=== PATIENT | male | born 1950 | race Caucasian/White ===

== ENCOUNTER 2017-03-24 15:00 | Emergency (ER) | payer OTHER ==
[~2017-03-24] VITALS: Ht 193 cm; Wt 120.0 kg
[~2017-03-24 15:00] MED LIST: AMLO10TA3 PO; CARV12.52 PO; LOSA50TA37 PO
[2017-03-24 15:15] VITALS: BP 178/90; PULSE 59; RESP 20; O2SAT 96
[2017-03-24] MEDS ORDERED: LOSA50TA37 PO (15:29)
[2017-03-24] MEDS ORDERED: ATOR10TA66 PO (15:29)
[2017-03-24] MEDS ORDERED: METF500T4 PO (15:29)
[2017-03-24] MEDS ORDERED: Fluorescein 0.6 mg Ophthalmic Strip ONE (18:16)
[2017-03-24] MEDS ORDERED: 0.9% Sodium Chloride Inhalation Solution ONE (18:16)
[2017-03-24] MEDS ORDERED: Tetracaine 0.5% 4 mL Ophthalmic Solution ONE (18:37)
[2017-03-24] MEDS ORDERED: Tetracaine 0.5% 4 mL Ophthalmic Solution BOTH_EYES ONE (18:40)
--- NOTE | 2017-03-24 18:56 | ED.REPORT ---
HPI-Eye Problem Date of Service Mar 24, 2017 ED Provider: Esequiel Qiu PA-C Raymond is an 66-year-old male with a history of hypertension, congestive heart failure, diabetes type II diagnosed roughly a year ago today with a chief complaint of blurred right vision. Patient states it began approximately 2 PM yesterday she is bending over working on an engine. He states "it was like a dark line came down and my vision. It looked like [place]'s Syrup pouring into milk." Is associated with blurred vision in his right eye. He states symptoms have remained unchanged since onset though the visual defect seems to move when he moves his head. He denies a history of CVA, TIA, hyperlipidemia. He denies trauma, pain, foreign body sensation, headache, any neurological changes. He recently had an ophthalmology evaluation after his diagnosis of diabetes, which he reports was unremarkable. Nursing Notes Stated Complaint: RIGHT EYE BLURRY Chief Complaint: Eye Nursing Notes Reviewed: Yes Allergies: Coded Allergies: No Known Allergies (Unverified Allergy, Unknown, 09/13/14) Scheduled Amlodipine (Amlodipine) 10 Mg Tablet 10 MG PO DAILY Atorvastatin Calcium (Atorvastatin Calcium) 10 Mg Tablet 10 MG PO DAILY Carvedilol (Carvedilol) 12.5 Mg Tablet 12.5 MG PO BID Losartan Potassium (Losartan Potassium) 50 Mg Tablet 50 MG PO BID Metformin (Metformin) 500 Mg Tablet 500 MG PO DAILY General Time Seen by MD: 18:36 Chief Complaint Right eye affected Past Medical History Past Medical History Hep C Reports: Congestive heart failure, Diabetes mellitus Past Surgical History Reports: Tonsillectomy Smoking History Former Smoker Social History Alcohol Use: "Social" Review of Systems Review of Systems Note: Negative unless stated otherwise in history of present illness Physical Exam General: Well appearing, well developed, well nourished, no acute distress. Head: Atraumatic, normocephalic. Eyes: No scleral icterus or injection. No discharge. PERRL, EOMI. Anterior chambers clear. Funduscopic examination reveals reduced red reflex on the right side. Visual acuity exam reveals 20/25 vision left, 20/60 vision right, 20/20 vision with both eyes,. Collin-Pen examination reveals readings of 15, 15 and 16 mmHg ENT: Voice clear, hearing grossly intact. Respiratory: Regular rate and rhythm. Breath sounds present, clear to auscultation and equal bilaterally. No respiratory distress. No increased work of breathing, speaks in complete sentences. Cardiovascular: Regular rate and rhythm, without murmur, gallop or rub. No pedal edema. Skin: Warm and dry. Neurological: Normal finger-nose, normal rapid hand, normal heel-mg, normal Romberg. Negative pronator drift. Normal gait. Cranial nerves: Vision grossly intact, PERRL, EOMI. Facial motion symmetrical, sensation to light touch over forehead, maxilla and mandible present and equal B /L. Voice clear and fluent, no drooling/pooling of saliva, uvula rises midline. Psychological: Alert and oriented. Speech appropriate, linear and logical. Behavior appropriate. Initial Vital Signs Vital Signs (First) Date Time Temp Pulse Resp B/P Pulse Ox O2 Delivery O2 Flow Rate FiO2 03/24/17 15:15 36.6 59 20 178/90 96 Room Air Elevated blood pressure Re-Eval/Medical Decision Med Decision/Clinical Course 66-year-old male with a history of congestive heart failure recently diagnosed with diabetes presents with a chief complaint of blurred vision in his right eye. He describes a sensation of something floating in his vision which moves as he moves his head around. It is fixed in the center of his field of vision. Complains of no other symptoms. Symptoms began at approximately 2:00 yesterday and have been persistent until now. Physical examination reveals a normal neurological examination, reduced visual acuity in the right eye reduced red reflex in the right eye, normal IOP. Consulted with who is concerned about posterior vitreal detachment, wishes to see the patient at 9 AM tomorrow in clinic. I discussed this with the patient, who states he will make the appointment. Advise regarding emergent return precautions. Patient verbalized understanding of and consented to the plan. Consultation : Consulted With: [employer] Tester (Dr. Redman) Note: Dr. Redman is concerned about posterior vitreal detachment. Will see patient in clinic at 9 AM tomorrow. He requests no special instructions be given for the evening, advises emergent return precautions of flashing lights in the vision or a sense of a curtain falling over the eye. Discharge & Departure Primary Impression: Blurry vision, right eye Disposition: Home Discharge Condition All VS Reviewed: Yes Condition: Stable Additional Instructions: Evaluation or blurry vision in the right eye in the emergency department includes interview, physical examination, and consultation with an endless steamer tender. Our endless steamer tender is suspicious of posterior vitreous detachment, a disorder of the "jelly" in your eyeball, and wishes to see you in his clinic at 9:00 tomorrow morning for an examination. Go to [facility] at [address] [place] [phone]. The phone number is . Return to the emergency department immediately for new or worsening symptoms including flashing lights in your field of vision or the sensation of a curtain closing over your eye, even if only for a short time. Referrals: OTHER,PHYSICIAN [facility], [address] [place] [id number] Phone number [phone] EDSupervising Provider for APC: Sam Mccall MD, Seth PA-C Mar 24, 2017 18:56
[2017-03-24 19:06] VITALS: BP 164/88; PULSE 50; RESP 18; O2SAT 99
[2017-03-24 20:39] VITALS: BP 166/89; PULSE 58; RESP 16; O2SAT 97
== END 2017-03-24 20:40 | disposition home or self-care (01) ==
LOC: SED 15:00
DX: H53.8 Other visual disturbances (principal); I10 Essential (primary) hypertension; E11.9 Type 2 diabetes mellitus without complications; I50.9 Heart failure, unspecified; Z87.891 Personal history of nicotine dependence